=== PATIENT | female | born 1995 | race Caucasian/White ===

== ENCOUNTER 2019-12-11 21:49 | Emergency (ER) | payer SELFPAY ==
[~2019-12-11] VITALS: Ht 167.6 cm; Wt 113.6 kg
[2019-12-11 22:37] VITALS: Ht 167.6 cm; Wt 113.6 kg
[2019-12-11] MEDS ORDERED: VALTREX500 MG PO (22:51)
[2019-12-11 22:55] LABS: BILIRUBIN NEGATIVE (NEGATIVE); GLUCOSE NEGATIVE (NEGATIVE); HCG URINE NEGATIVE (NEGATIVE); KETONE NEGATIVE (NEGATIVE); NITRITE NEGATIVE (NEGATIVE); UROBILINOGEN NORMAL (NORMAL)
[2019-12-11 23:56] VITALS: BP 160/82
== END 2019-12-11 23:57 | disposition home or self-care (01) ==
LOC: D.ER 21:49
PROVIDERS: Emergency Medicine
DX: N89.8 Other specified noninflammatory disorders of vagina (principal); Z20.2 Contact with and (suspected) exposure to infections with a predominantly sexual mode of transmission

== ENCOUNTER 2019-12-24 10:57 | Emergency (ER) | payer MEDICAID ==
[~2019-12-24 10:57] MED LIST: VALTREX500 MG PO
[2019-12-24 11:04] VITALS: BP 161/79; Ht 167.6 cm
[2019-12-24 12:25] LABS: BILIRUBIN NEGATIVE (NEGATIVE); GLUCOSE NEGATIVE (NEGATIVE); KETONE NEGATIVE (NEGATIVE); NITRITE NEGATIVE (NEGATIVE); SPECIFIC GRAVITY 1.015 (1.005-1.020); UROBILINOGEN NORMAL (NORMAL)
[2019-12-24 12:27] LABS: BACTERIA FEW /hpf (NEGATIVE); EPITHELIAL CELLS 0-5 /hpf (0-5); RED CELLS - URINE 0-5 /hpf (0-5); WHITE CELLS - URINE OCC /hpf (NEGATIVE)
[2019-12-24 12:28] LABS: YEAST RARE /hpf (NONE SEEN)
== END 2019-12-24 12:28 | disposition home or self-care (01) ==
LOC: D.ER 10:57
PROVIDERS: Family Medicine
DX: A64 Unspecified sexually transmitted disease (principal); Z20.2 Contact with and (suspected) exposure to infections with a predominantly sexual mode of transmission; R30.0 Dysuria; N89.8 Other specified noninflammatory disorders of vagina

== ENCOUNTER 2020-01-18 22:35 | Emergency (ER) | payer MEDICAID ==
[~2020-01-18] VITALS: Ht 167.6 cm; Wt 100.0 kg
[2020-01-18 22:43] VITALS: Ht 167.6 cm; Wt 100.0 kg
[2020-01-18 23:48] LABS: BILIRUBIN NEGATIVE (NEGATIVE); GLUCOSE NEGATIVE (NEGATIVE); KETONE NEGATIVE (NEGATIVE); NITRITE NEGATIVE (NEGATIVE); SPECIFIC GRAVITY 1.005 (1.005-1.020); UROBILINOGEN NORMAL (NORMAL)
[2020-01-18 23:53] VITALS: BP 123/36
== END 2020-01-18 23:53 | disposition home or self-care (01) ==
LOC: D.ER 22:35
PROVIDERS: Family Medicine
DX: Z20.2 Contact with and (suspected) exposure to infections with a predominantly sexual mode of transmission (principal)